=== PATIENT | female | born 1995 | race African-American/Black ===

== ENCOUNTER → 2017-10-15 | Day surgery (SDC) | payer OTHER ==
[~2017-10-15] MED LIST: FENTANYL CITRATE INJ/PF 100 MCG/2 ML AMPUL ONE; IBUPROFEN 800 MG TABLET ONE; KETAMINE HCL INJ 500 MG/10 ML VIAL ONE; LIDOCAINE 2% INJ-PF (20 MG/ML) 2 ML AMPUL ONE; MIDAZOLAM 2 MG/2 ML INJ ONE; ONDANSETRON 4 MG TAB.RAPDIS PO SCH; OXYCODONE-ACETAMINOPHEN 5-325 MG TABLET PO PRN; PROPOFOL INJ 200 MG/20 ML VIAL IV ONE
[2017-10-15 07:44] LABS: APPEARANCE,URINE SLIGHTLY-CLOUDY; BILIRUBIN,URINE NEGATIVE (NEGATIVE); COLOR,URINE YELLOW; GLUCOSE, URINE NEGATIVE (NEGATIVE); KETONES,URINE NEGATIVE (NEGATIVE); LEUKOCYTE ESTERASE,URINE NEGATIVE (NEGATIVE); NITRITE,URINE NEGATIVE (NEGATIVE); PROTEIN,URINE NEGATIVE (NEGATIVE); URINE SPECIFIC GRAVITY 1.021; UROBILINOGEN,URINE NEGATIVE mg/dL (<2.0)
[2017-10-15 07:50] LABS: HEMATOCRIT 35.6 % (36.0-47.0); HEMOGLOBIN 11.6 g/dL (12.0-15.5); MEAN CORPUSCULAR HEMOGLOBIN 29.6 pg (27.0-33.4); MEAN CORPUSCULAR HGB CONC 32.5 g/dL (32.0-36.0); MEAN CORPUSCULAR VOLUME 91 fl (80-97); PLATELET COUNT 234 10^3/uL (150-450); RED BLOOD COUNT 3.91 10^6/uL (3.72-5.28); RED CELL DISTRIBUTION WIDTH 13.5 % (11.5-14.0); WHITE BLOOD COUNT 5.4 10^3/uL (4.0-10.5)
--- NOTE | 2017-10-15 09:49 | OPERATIVE REPORT E ---
Operative Report NAME: SANTOS REAL : 1995 AGE: 21Y DATE OF SURGERY: 10/15/2017 ROOM: PREOPERATIVE DIAGNOSIS: Missed . POSTOPERATIVE DIAGNOSIS: Missed . OPERATION: Suction dilatation and curettage. SURGEON: Yeni GLEASON M.D. ESTIMATED BLOOD LOSS: Less than 25 mL. ANESTHESIA: LMAC. TISSUE REMOVED OR ALTERED: Products of conception. PROCEDURE: The patient was placed in a dorsal lithotomy position, prepped and draped in a sterile fashion. The speculum was placed. Cervix was visualized and grasped with a single-toothed tenaculum, sounded to a depth of 9 cm. Cervix was dilated to admit a #8 suction catheter. Suction curettage was performed, followed by sharp curettage, followed by repeat suction. The single-toothed tenaculum was removed and hemostasis was noted. The patient tolerated it well and was taken to recovery in good condition. DICTATING PHYSICIAN: Yeni GLEASON M.D. [id number] PHY#: [id number] ID: [id number] JOB#: [id number] ACCT: [id number] cc:Yeni GLEASON M.D. >
[2017-10-15] MEDS: IBUPROFEN 800 MG TABLET PO SCH ×2 (09:55→10:10)
[2017-10-15 10:58] VITALS: BP 107/78
== END ==
LOC: OROUT 07:00
PROVIDERS: ATTEND Obstetrics & Gynecology Gynecology
DX: O02.1 Missed abortion (principal)
CPT/HCPCS: 36415; 85027; 81001; 88305 ×2; 59820; J2250; J3010; J3490 ×2; S0119; J2704; 1965